=== PATIENT | female | born 1955 | race Caucasian/White ===

== ENCOUNTER 2016-12-09 08:17 | Day surgery (SDC) | payer OTHER ==
[2016-12-05 10:33] LABS: BASOPHILS # (AUTO) 0.3 K/uL (0.00-0.22); BASOPHILS % (AUTO) 3.8 % (0.0-2.0); EOSINOPHILS # (AUTO) 0.2 K/uL (0-0.4); EOSINOPHILS % (AUTO) 3.1 % (0.0-4.0); HEMATOCRIT 39.1 % (36-48); HEMOGLOBIN 13.3 g/dL (12.0-16.0); LYMPHOCYTES # (AUTO) 2.3 K/uL (2.5-16.5); LYMPHOCYTES % (AUTO) 33.9 % (20.5-51.1); MEAN CORPUSCULAR HEMOGLOBIN 28 pg (27-31); MEAN CORPUSCULAR HGB CONC 34 g/dL (33-37); MEAN CORPUSCULAR VOLUME 81 fL (80-94); MONOCYTES # (AUTO) 0.6 K/uL (0.8-1.0); MONOCYTES % (AUTO) 8.3 % (1.7-9.3); NEUTROPHILS # (AUTO) 3.3 K/uL (1.8-7.7); NEUTROPHILS % (AUTO) 50.9 % (42.2-75.2); PLATELET COUNT (AUTO) 273 K/uL (140-450); RED BLOOD CELL COUNT(AUTO) 4.82 MIL/uL (4.20-5.40); RED CELL DISTRIBUTION WIDTH 12.8 % (11.6-13.7); WHITE BLOOD COUNT (AUTO) 6.7 K/uL (4.8-10.8)
[2016-12-05 10:47] LABS: ALBUMIN 4.1 g/dL (3.4-5.0); ANION GAP 12.8 (8-16); CARBON DIOXIDE 30.7 mmol/L (21-32); CREATININE 0.6 mg/dL (0.6-1.3); POTASSIUM 3.5 mmol/L (3.5-5.1); TOTAL BILIRUBIN 0.6 mg/dL (0.0-1.0)
[~2016-12-09] VITALS: Ht 157.5 cm; Wt 63.5 kg
[2016-12-09] MEDS ORDERED: KETOROLAC 30 MG/ML VIAL IVP ONE (11:37)
[2016-12-09] MEDS ORDERED: SEVOFLURANE 250 ML BTL INH ONE (11:37)
[2016-12-09] MEDS ORDERED: PROPOFOL 200 MG/20 ML VIAL IV ONE (11:37)
[2016-12-09] MEDS ORDERED: DEXAMETHASONE 4 MG/ML VIAL IVP ONE (11:37)
[2016-12-09] MEDS ORDERED: ONDANSETRON 4 MG/2 ML VIAL IVP ONE (11:37)
[2016-12-09] MEDS ORDERED: fentaNYL 0.05 MG/ML VIAL ONE (11:38)
[2016-12-09] MEDS ORDERED: BUPIVACAINE-MPF 0.25% 30 ML VIAL INJ ONE (11:39)
[2016-12-09] MEDS ORDERED: HYDROmorphone 1 MG/ML AMP IVP PRN (13:15)
[2016-12-09] MEDS ORDERED: HYDROcodone/APAP 5/325 MG 1 TAB TAB PO PRN (13:15)
[2016-12-09] MEDS ORDERED: ONDANSETRON 4 MG/2 ML VIAL IV PRN (13:15)
[2016-12-09] MEDS ORDERED: MORPHINE SULFATE 4 MG/ML SYR IV PRN (13:15)
[2016-12-09] MEDS ORDERED: MORPHINE SULFATE 4 MG/ML SYR IVP ONE (13:50)
== END 2016-12-09 14:29 | disposition home or self-care (01) ==
LOC: MMU 08:17 → MDS 08:17
PROVIDERS: ATTEND Surgery
DX: D17.79 Benign lipomatous neoplasm of other sites (principal); I10 Essential (primary) hypertension; M81.0 Age-related osteoporosis without current pathological fracture; Z90.710 Acquired absence of both cervix and uterus; Z90.49 Acquired absence of other specified parts of digestive tract; Z98.890 Other specified postprocedural states; Z79.899 Other long term (current) drug therapy
CPT/HCPCS: 27339; 36415; 71010; 80053; 85025; 88304; 93005; J0690; J1100; J1885; J2270; J2405; J2704; J3010; J3490; J7060; J7120